=== PATIENT | male | born 1995 | race Caucasian/White ===

== ENCOUNTER 2018-03-20 15:09 | Emergency (ER) | payer SELFPAY ==
[~2018-03-20] VITALS: Ht 172.7 cm; Wt 64.4 kg
[2018-03-20 15:19] VITALS: Ht 172.7 cm; Wt 64.4 kg
[2018-03-20] MEDS ORDERED: LORAZEPAM 1 MG TAB PO ONE (17:30)
--- NOTE | 2018-03-20 20:50 | ERD ---
ER Documentation Chief Complaint Chief Complaint MATHUR "when I think alot" HPI 22-year-old male presents the emergency department complaining of a "headache." Patient is nonspecific about his headache but it is not acute in onset or noemy nderclap in nature. It is associated with what is here to be psychiatric symptoms as he describes "thinking a lot" as well as auditory hallucinations. Patient denies any fevers, chills or any other symptoms associated with a headache he states he on and off considered suicide but has no definitive plan. He says he smokes a lot of marijuana and his symptoms seem to worsen with this. He denies any other drug use at this time. ROS All systems reviewed and are negative except as per history of present illness. Medications Home Meds No Active Prescriptions or Reported Meds Allergies Allergies: Uncoded Allergies: SEAFOOD (Allergy, Unknown, 03/20/18) PMhx/Soc Medical and Surgical Hx: pt denies Medical Hx, pt denies Surgical Hx Hx Alcohol Use: No Hx Substance Use: Yes (marijuana) Hx Tobacco Use: No Smoking Status: Never smoker FmHx No history of psychiatric disease Physical Exam Vitals Vital Signs Date Temp Pulse Resp B/P (MAP) Pulse Ox O2 O2 Flow FiO2 Time Delivery Rate 03/20/18 98.1 66 18 146/70 100 15:19 (95) Physical Exam GENERAL: The patient is well developed and appropriate for usual state of health in no apparent distress HEENT: Pupils equal, round, and reactive to light. EOMI. There is no scleral icterus. NECK: C-spine is soft and supple, there is no meningismus. There is no cervical lymphadenopathy. LUNGS: Clear to auscultation bilaterally. There are no rales, wheezes or rhonchi. HEART: Regular rate and rhythm, no murmurs, clicks, rubs or gallops. ABDOMEN: Soft, non-tender, non-distended. There are bowel sounds in all four quadrants. No rebound or guarding. EXTREMITIES: There is no peripheral cyanosis or edema. No focal swelling or erythema. NEURO: The patient moves all four extremities with 5/5 strength. Cranial nerves II - XII are intact. Normal gait. Alert and oriented SKIN: There is no apparent rash or petechiae. HEME/LYMPHATIC: There is no evidence of excessive bruising or lymphedema. PSYCHIATRIC: Patient is awake, alert, oriented. He has a bizarre affect and demeanor. He is expressing occasional suicidal ideation with no definitive plan. He expresses occasional auditory hallucinations. No command hallucinations. Result Diagram: 03/20/18182903/20/181829 Results 24 hrs Laboratory Tests Test 03/20/18 18:30 White Blood Count 8.3 10^3/ul Red Blood Count 4.83 10^6/ul Hemoglobin 15.3 g/dl Hematocrit 44.8 % Mean Corpuscular Volume 92.8 fl Mean Corpuscular Hemoglobin 31.7 pg Mean Corpuscular Hemoglobin Concent 34.2 g/dl Red Cell Distribution Width 11.6 % Platelet Count 226 10^3/UL Mean Platelet Volume 10.4 fl Immature Granulocytes % 0.200 % Neutrophils % 64.3 % Lymphocytes % 28.1 % Monocytes % 6.4 % Eosinophils % 0.6 % Basophils % 0.4 % Nucleated Red Blood Cells % 0.0 /100WBC Immature Granulocytes # 0.020 10^3/ul Neutrophils # 5.3 10^3/ul Lymphocytes # 2.3 10^3/ul Monocytes # 0.5 10^3/ul Eosinophils # 0.1 10^3/ul Basophils # 0.0 10^3/ul Nucleated Red Blood Cells # 0.0 10^3/ul Sodium Level 141 mmol/L Potassium Level 3.9 mmol/L Chloride Level 103 mmol/L Carbon Dioxide Level 29 mmol/L Anion Gap 9 Blood Urea Nitrogen 16 mg/dl Creatinine 0.80 mg/dl Est Glomerular Filtrat Rate mL/min > 60 mL/min Glucose Level 91 mg/dl Calcium Level 10.1 mg/dl Total Bilirubin 0.7 mg/dl Direct Bilirubin 0.00 mg/dl Indirect Bilirubin 0.7 mg/dl Aspartate Amino Transf (AST/SGOT) 26 IU/L Alanine Aminotransferase (ALT/SGPT) 24 IU/L Alkaline Phosphatase 54 IU/L Total Protein 8.6 g/dl Albumin 5.1 g/dl Globulin 3.50 g/dl Albumin/Globulin Ratio 1.45 Salicylates Level < 1.0 mg/dl Acetaminophen Level < 10.0 ug/ml Ethyl Alcohol Level < 10.0 mg/dl Current Medications Medications Dose Sig/Blaise Start Time Status Last (Trade) Ordered Route PRN Stop Time Admin Dose Reason Admin Lorazepam 1 mg ONCE ONCE 03/20/18 DC 03/20/18 (Ativan) PO 17:30 03/20/18 17:39 17:31 Procedures/MDM Patient was taken to a room, seen and evaluated. Comfort measures were initiated. Diagnostic tests were ordered and reviewed. RADIOLOGY: Reviewed with the radiologist CONSULTATION: Tele-psychiatry evaluation was appreciated REEVALUATION: 2049: Patient remained stable from a medical and psychiatric standpoint. Diagnostic tests were discussed with the patient as well as the consultation recommendations. Outpatient follow-up was recommended. MEDICAL DECISION MAKIN-year-old male presents the emergency room with nonspecific headache symptoms. From the standpoint of his headache, this does not appear to be physically concerning with no evidence of findings on CT scan, no evidence of meningitis, no evidence of subarachnoid hemorrhage. This is clearly associated with psychiatric disease, which is likely also related to his marijuana use. Patient at this point shows no evidence of being a danger to himself or others and based on my own evaluation as well as tele-psychiatry evaluation, he is appropriate for outpatient follow-up Departure Diagnosis: Primary Impression: Headache Additional Impressions: Marijuana abuse Psychosis Condition: Stable Patient Instructions: Marijuana Abuse, Psychosis Additional Instructions: please stop smoking marijuana. follow up with a copy of your results tomorrow at the [facility] which is located next to [facility] in [place]. MUNIR PARMAR Mar 20, 2018 20:50
[2018-03-20 21:18] VITALS: BP 102/54; PULSE 72; RESP 18
== END 2018-03-22 06:54 | disposition home or self-care (01) ==
LOC: FTE 15:09 → E/R 03-22 06:54
DX: F12.10 Cannabis abuse, uncomplicated (principal); F29 Unspecified psychosis not due to a substance or known physiological condition
CPT/HCPCS: 36415; 70450; 80053; 80307; 85025